=== PATIENT | female | born 1975 | race Two or more races ===

== ENCOUNTER → 2024-08-26 | Outpatient (CLI) | payer MEDICAID, SELFPAY ==
--- NOTE | 2024-08-26 09:15 | XR_ITS ---
Examination: Screening digital mammography, bilateral Computer aided detection 3-D breast Tomosynthesis, bilateral Date and time of exam: August 25, 2024 0916 hrs. Compared to mammograms dating to December 25, 2021 Indication: Screening Technique: Nonmagnified MLO, CC views of the breasts to been obtained, reconstructed from 3-D Tomosynthesis images. R2 computer aided detection program utilized for evaluation of suspicious masses and/or abnormal calcifications. 3-D Tomosynthesis images obtained. Findings: Scattered areas of fibroglandular density. Benign calcifications 4 mm focal asymmetry upper left breast MLO view, 8 mm all Impression: BI-RADS Category 0: Incomplete: Need additional imaging evaluation 4 mm focal asymmetry upper left breast, recommend follow-up spot tomographic views upper outer quadrant left breast anterior depth, left breast sonography to complete the workup
== END | disposition home or self-care (01) ==
LOC: CDIM 09:03
PROVIDERS: Referring Provider Family Medicine; Visit Provider Family Medicine
DX: Z12.31 Encounter for screening mammogram for malignant neoplasm of breast (principal); N64.89 Other specified disorders of breast
CPT/HCPCS: 77063; 77067

== ENCOUNTER → 2024-10-14 | Outpatient (CLI) | payer BC, MEDICAID, SELFPAY ==
--- NOTE | 2024-10-14 10:00 | XR_ITS ---
Examination: Breast ultrasound, unilateral, left complete Date and time of exam: October 14, 2024, 10:29 AM Indications: Mammogram August 26, 2024, 4 mm focal asymmetry upper left breast Technique: Real-time mullen scale ultrasonographic imaging performed left breast including all 4 quadrants as well as nipple retroareolar and axillary region. Findings: 1:00 oval mass lobular margins 5 x 3 x 4 mm Impression: BI-RADS Category 3: Probably benign findings, recommend 1 additional 6 month left breast sonogram follow-up to document stability of 1:00 nodule described above
--- NOTE | 2024-10-14 10:30 | XR_ITS ---
Examination: Diagnostic digital mammography, unilateral, left Computer aided detection 3-D breast Tomosynthesis, unilateral Date and time of exam: 10/14/2024, 10:25 AM Comparisons: December 2021 through August 2024 Indications: Further evaluation of asymmetry seen on prior screening exam. Technique: Nonmagnified MLO, CC views of the left breast have been obtained, reconstructed from 3-D Tomosynthesis images. R2 computer aided detection program utilized for evaluation of suspicious masses and/or abnormal calcifications. 3-D Tomosynthesis images obtained. Technologist: Findings: There are scattered areas of fibroglandular density. No evidence of abnormal masses or suspicious calcifications. The previously described asymmetry does not persist on spot compression views and represents superimposition of normal fibroglandular tissue. Impression: BI-RADS category 1: Negative findings (within normal) Recommend 1 year follow-up mammogram
== END | disposition home or self-care (01) ==
LOC: CDIM 10:10
PROVIDERS: Referring Provider Family Medicine; Visit Provider Family Medicine
DX: N63.21 Unspecified lump in the left breast, upper outer quadrant (principal)
CPT/HCPCS: 76641; 77061; 77065; G0279

== ENCOUNTER 2025-06-08 15:09 | Emergency (ER) | payer BC, SELFPAY ==
[2025-06-08 15:10] VITALS: BP 179/98; PULSE 116; RESP 20; TEMP 37.2; O2SAT 98; BMI 41.6
[2025-06-08 15:28] VITALS: PULSE 126; RESP 16; O2SAT 98
--- NOTE | 2025-06-08 15:48 | XR_ITS ---
CLINICAL INDICATION: cough TECHNIQUE: XR chest 2V COMPARISON: Chest radiographs 09/29/2017 and 12/02/2013 FINDINGS: The cardiomediastinal silhouette is within normal limits. No airspace opacities suggestive of pneumonia. No pulmonary edema. Prominent ovoid nodule with surrounding air lucency projects over the inferolateral right hemithorax on the frontal view, probably representing a nipple shadow. It is not identified on the lateral view. No pleural effusion or pneumothorax. Degenerative changes of the skeletal structures. No apparent acute osseous abnormality. IMPRESSION: No radiographic evidence for acute cardiopulmonary abnormality. Prominent ovoid nodule with surrounding air lucency projects over the inferolateral right hemithorax on the frontal view, probably representing a nipple shadow. This could be confirmed with repeat chest radiographs with nipple marker in place. - This report was generated utilizing speech recognition software. -
--- NOTE | 2025-06-08 16:07 | XR_ITS ---
Examination: CT chest, without intravenous contrast. Sagittal and coronal 2-D reconstructions. Exam date and time: 06/08/2025 at 5:12 p.m. INDICATION: Cough and mucus for 7 days COMPARISON: Chest radiograph of the same day CTDI:vol (mGy) 17.3 DLP: (mGycm) 589 Technique: Multiple 3.0 mm axial sections of the chest to been obtained. Bone and lung density settings are obtained. Sagittal and coronal 2-D reconstructions have been obtained. Low dose protocols were performed. One or more of the following dose reduction techniques were used; automated exposure control, adjustment of the mA and/or KV according to patient size, use of iterative reconstruction technique. Findings: Lack of intravenous contrast limits evaluation of solid organs, vasculature, and lymph nodes. Line/Tubes/Devices: None. Lungs and large airways: Patent central airways. Very mild bilateral bronchial wall thickening is present throughout the upper and lower lung garber. No evidence for bronchiectasis or significant endobronchial opacification. No air space opacities suggestive of pneumonia. A 3 mm solid well-circumscribed nodule is present in the posterior peripheral portion of the right upper lobe that appears to be at a vessel branching point (axial image 97). A nonspecific 4 mm juxta-fissural nodule along the minor fissure could represent a benign fissural lymph node or potentially a confluence of small vessels in the region (axial image 124). No lung mass. The prominent nodule projecting over the right lower lung field on prior chest radiograph was a nipple shadow. No evidence for pulmonary emphysema or interstitial lung disease. Pleura: No pleural effusion, pneumothorax or concerning pleural thickening. Mediastinum and drew: No lymphadenopathy or other masses. Heart and great vessels: Heart size is within normal limits. No pericardial effusion. No thoracic aortic aneurysm. Mild LAD atherosclerotic calcification. Chest wall, lower neck, axillae: No lymphadenopathy, other mass or abnormal collection. Visualized Upper abdomen: No acute abnormalities in the partially imaged prominent liver extending inferiorly outside of the [id number]. Cholecystectomy without evidence for concerning biliary ductal dilatation. No adrenal nodules. Musculoskeletal: Multifocal degenerative changes include multilevel spondylosis with otherwise no evidence for recent fracture or aggressive lesion. IMPRESSION: Diffuse very mild bilateral bronchial wall thickening is most suggestive of a low-grade bronchitis. No evidence for airspace consolidation, mass or pleural effusion. Probably benign 3 mm and 4 mm size nodules in the right lung as described. The prominent nodule projecting over the right lower lung field on prior chest radiograph was a nipple shadow.
--- NOTE | 2025-06-08 16:08 | PD.EDRME ---
Rapid Medical Screening Exam RME Arrival date/time: 06/08/25 15:09 49-year-old female presents to the Emergency Department today with URI-like symptoms patient reports cough, congestion generalized bodyaches Time Seen by Provider: 06/08/25 15:46 Vital signs: Vital Signs Temperature 98.9 F 06/08/25 15:10 Pulse Rate 116 H 06/08/25 15:10 Respiratory Rate 20 06/08/25 15:10 Blood Pressure 179/98 H 06/08/25 15:10 Pulse Oximetry (%) 98 06/08/25 15:10 Oxygen Delivery Method Room Air 06/08/25 15:10 Vital signs reviewed by provider: Yes Exam: On exam patient does not appear ill or toxic symptoms consistent with viral illness Clinical Impression: Lab work and imaging obtained
[2025-06-08 16:45] LABS: Basophils # (Auto) 0.1 Thou/mm3 (0.0-0.2); Basophils % (Auto) 1 % (0-2.5); Eosinophils # (Auto) 0.2 Thou/mm3 (0.0-0.5); Eosinophils % (Auto) 2 % (0-10); Hematocrit 41.3 % (36.0-46.0); Hemoglobin 13.9 g/dL (12.0-16.0); Immature Granulocytes Auto 0.04 Thou/mm3 (0.00-0.00); Lymphocytes # (Auto) 2.0 Thou/mm3 (1.0-4.8); Lymphocytes % (Auto) 22 % (10-50); Mean Corpuscular HGB Conc 33.7 g/dl (31.0-37.0); Mean Corpuscular Hemoglobin 28.0 pg (25.0-35.0); Mean Corpuscular Volume 83 fL (80-100); Monocytes # (Auto) 0.5 Thou/mm3 (0.0-0.8); Monocytes % (Auto) 6 % (0-12); Neutrophils # (Auto) 6.4 Thou/mm3 (1.8-7.7); Neutrophils % (Auto) 69 % (37-80); Nucleated Red Blood Cell # 0.00 Thou/mm3 (0.00-0.00); Nucleated Red Blood Cell % 0 /100 WBC (0); Platelet Count 266 Thou/mm3 (140-440); RDW Standard Deviation 39.0 fL (36.4-46.3); Red Blood Count 4.96 Miln/mm3 (4.00-5.20); White Blood Count 9.3 Thou/mm3 (3.6-11.0)
[2025-06-08 17:19] LABS: Alanine Aminotransferase 18 U/L (10-49); Albumin, Serum 4.2 gm/dL (3.5-5.0); Albumin/Globulin Ratio 1.8 (1.2-2.2); Alkaline Phosphatase 85 U/L (46-116); Anion Gap 8 (7-16); Aspartate Amino Transferase 14 U/L (0-34); BUN/Creatinine Ratio 9 Ratio (12-20); Bilirubin,Total 0.3 mg/dL (0.3-1.2); Blood Urea Nitrogen 13 mg/dL (9-23); Calcium 9.2 mg/dL (8.3-10.6); Calcium (Corrected) 9.2 mg/dL (8.5-10.1); Carbon Dioxide 29.7 mMol/L (20.0-31.0); Chloride 101 mMol/L (98-107); Creatinine (Component) 1.4 mg/dL (0.6-1.3); Estimated Creatinine Clearance 55.6 mL/min (>60); Globulin 2.4 gm/dL (2.3-3.5); Glucose 394 mg/dL (74-106); Osmolality,Calculated 293 (275-295); Potassium 4.7 mMol/L (3.4-5.1); Sodium 139 mMol/L (136-145); Total Protein 6.6 gm/dL (5.7-8.2); eGFR 46 See Note
[2025-06-08 18:16] VITALS: BP 200/107; PULSE 104; RESP 19; TEMP 37.2; O2SAT 97
--- NOTE | 2025-06-08 18:31 | PD.EDSOB ---
ED SOB =RME/HPI General Chief Complaint: Shortness of Breath/Dyspnea Stated Complaint: SOB Time Seen by Provider: 06/08/25 15:46 Arrival date/time: 06/08/25 15:09 49-year-old female patient with no past medical history except for hypertension came in for evaluation regarding cough for more than a week, associated with shortness of breath, severity moderate. Patient denies any fever denies any chest pain on coughing denies any other complaints no medication was taken prior to ER visit. RME / HPI RME / HPI Narrative: 06/08/25 15:09 49-year-old female presents to the Emergency Department today with URI-like symptoms patient reports cough, congestion generalized bodyaches Exam: On exam patient does not appear ill or toxic symptoms consistent with viral illness Impression: Lab work and imaging obtained Related Data Home Medications ?Medication ?Instructions ?Recorded ?Confirmed amlodipine 10 mg tablet 10 mg PO QDAY 09/29/17 04/07/19 lorazepam 1 mg tablet 0.5 mg PO QDAY 09/29/17 04/07/19 Previous Rx's ?Medication ?Instructions ?Recorded cyclobenzaprine 5 mg tablet 5 mg PO Q8H PRN muscle spasm #14 06/05/23 tabs gabapentin 300 mg capsule 300 mg PO Q8H #30 caps 06/05/23 ibuprofen 800 mg tablet (IBU) 800 mg PO Q8H #20 tabs 06/05/23 ibuprofen 800 mg tablet (IBU) 800 mg PO Q8H #20 tabs 08/18/23 diphenhydramine HCl 25 mg capsule 50 mg (2 x 25 mg) PO TID PRN 06/08/25 (Benadryl) allergic reaction #20 caps prednisone 50 mg tablet 50 mg PO QDAY #5 tabs 06/08/25 Allergies Allergy/AdvReac Type Severity Reaction Status Date / Time hydrocodone (From Vicodin) Allergy Mild Palpitation Verified 06/08/25 15:27 s Review of Systems Review of Systems Narrative Review of Systems: Review of system reviewed and within normal limits except mentioned in HPI ED Exam Narrative Physical exam: VITAL SIGNS: Reviewed. GENERAL APPEARANCE: Alert and interactive, follows commands, no acute distress, HEAD AND FACE: Non-traumatic. ENT: PERRL, pink conjunctivitis, eyelid no trauma, Mucous membrane moist. NECK: Supple, nontender, no nuchal rigidity. CHEST: No tenderness, no crepitus, no paradoxical movement, no retractions. LUNGS: Clear, well ventilated, symmetric, no rales, no wheezing, no ronchi, no stridor, good breath sounds bilaterally. HEART: Regular rate, regular rhythm, no murmur, no gallops. ABDOMEN: Soft, positive bowel sounds, nondistended, no guarding, nontender, no rebound, no masses, RECTAL: Deferred. GENITAL: Deferred. NEUROLOGICAL: Gross motor function intact sensory function intact, Appropriate for age. MUSCULOSKELETAL: low back nontender, full range of motion. EXTREMITIES: Nontender, full range of motion. SKIN: Color pink, dry, no rash, no lacerations, no abrasions, no contusions. LYMPHATICS: Deferred. Course Quality Measures none Orders Category Date Time Status Bedside COVID-19 Antigen Test NOW Care 06/08/25 15:[address] chest wo con Stat Exams 06/08/25 16:07 Completed XR chest 2V Stat Exams 06/08/25 15:48 Completed CBC Stat Lab 06/08/25 16:31 Completed CMP [Comprehensive Metabolic Panel] Stat Lab 06/08/25 16:31 Completed Vital Signs Vital signs: Vital Signs Temperature 98.9 F 06/08/25 15:10 Pulse Rate 116 H 06/08/25 15:10 Respiratory Rate 20 06/08/25 15:10 Blood Pressure 179/98 H 06/08/25 15:10 Pulse Oximetry (%) 98 06/08/25 15:10 Oxygen Delivery Method Room Air 06/08/25 15:10 Shortness of Breath / Dyspnea MDM Narrative MDM Narrative:: 06/08/25 15:09 49-year-old female patient with no past medical history except for hypertension came in for evaluation regarding cough for more than a week, associated with shortness of breath, severity moderate. Patient denies any fever denies any chest pain on coughing denies any other complaints no medication was taken prior to ER visit. Patient's workup today all came back unremarkable including CT scan of the chest and abdomen that showed bronchitis pattern otherwise unremarkable. Results discussed with the patient. Patient was given Benadryl and prednisone with significant improvement of symptoms. Patient appears nontoxic and hemodynamically stable .Decision to discharge the patient. The patient/family was given an opportunity to ask questions and understood their discharge instructions. Discharge instructions specifically included follow up provider and time frame, current and/or new medications and possible side effects, indications for sooner follow up or return to the emergency department, and the expected course of current diagnosis. Patient reports feeling better as well and giving evidence of significant clinical improvement, I believe patient is now a candidate for discharge. Patient data External records reviewed:: None Clinical information provided by:: patient Social determinants that could affect healthcare access:: none Patient has the following chronic illnesses:: None How is presenting disease/condition affected by chronic disease/condition?: no chronic disease Evaluation data The following diagnostics were reviewed and interpreted by me:: lab results and radiology exam(s) Lab and/or radiology exams considered but not ordered:: None Interpretation Summary: See MDM Medications / Prescriptions Medications or Prescriptions considered but not ordered:: None Medication administrations:: Prednisone and Benadryl Consultations Consultation(s) initiated? (list below): No Diagnosis Shortness of Breath Differential Diagnosis: acute exacerbation of chronic obstructive airways disease, congestive heart failure and community acquired pneumonia Most likely diagnosis given after review of the tests above:: Bronchitis Admission Indicated Admission indicated?: not indicated Admission Request Was there a request for admission?: No Disposition Plan Disposition Plan: Discharge Discharge Attestation Discharge Attestation: The patient was given an opportunity to ask questions and understood the discharge instructions. Discharge instructions specifically effects, indications for sooner follow up or return to the emergency department, and the expected course of current diagnosis. Patient condition: Stable Discharge Plan Plan Patient Disposition: HOME (Self Care) Discharge Disposition comment: stable Prescriptions/Referrals Prescriptions/Med Rec: New prednisone 50 mg tablet 50 mg PO QDAY Qty: 5 0RF diphenhydramine HCl [Benadryl] 25 mg capsule 50 mg PO TID PRN (Reason: allergic reaction) Qty: 20 0RF No Action amlodipine 10 mg Tablet 10 mg PO QDAY lorazepam 1 mg Tablet 0.5 mg PO QDAY cyclobenzaprine 5 mg tablet 5 mg PO Q8H PRN (Reason: muscle spasm) Qty: 14 0RF ibuprofen [IBU] 800 mg tablet 800 mg PO Q8H Qty: 20 0RF gabapentin 300 mg capsule 300 mg PO Q8H Qty: 30 0RF ibuprofen [IBU] 800 mg tablet 800 mg PO Q8H Qty: 20 0RF Problem List Clinical Impression: Bronchitis Patient/Caregiver Discharge Instructions Discharge Activity: activity as tolerated Education Materials: ED Bronchitis, No Antibiotic (Adult) Additional Instructions: Thank you for the opportunity for serving you today. You are stable for discharged . You are advised to: Follow-up with your PCP in 1 to 2 days Return to ED for worsening of symptoms Increase oral fluids Take medication as prescribed Print Language: Bol[place]ian Stand Alone Forms: Sandy Award Info., Patient Portal Info Letter
== END 2025-06-08 18:55 | disposition home or self-care (01) ==
LOC: SERX 18:43
PROVIDERS: Nurse Practitioner Primary Care; Emergency Provider Emergency Medicine
DX: J40 Bronchitis, not specified as acute or chronic (principal)
CPT/HCPCS: 36415; 71046; 71250; 80053; 85025; 99283; J7512; A9270